=== PATIENT | female | born 2000 | race Hispanic/Latino ===

== ENCOUNTER 2020-08-05 09:17 | Observation (INO) | payer OTHER, SELFPAY ==
[2020-08-05 09:54] VITALS: BMI 41.6
[2020-08-05] MEDS ORDERED: hydrALAZINE 20 MG/ML VIAL SLOW IVP PRN (10:30)
[2020-08-05] MEDS ORDERED: Ondansetron PF 4 MG/2 ML Vial IVP PRN (10:51)
[2020-08-05 14:26] LABS: Hemoglobin 10.5 g/dL (12.0-15.5); Mean Corpuscular HGB CONC 32.9 g/dL (32.0-36.0); Mean Corpuscular Hemoglobin 29.6 pg (27.0-33.0); Mean Corpuscular Volume 89.9 fl (81.6-98.3); Mean Platelet Volume 9.7 fl (7.4-10.4); Platelet Count 249 10x3/uL (150-450); RBC Distribution Width 13.2 % (11.5-14.5); Red Blood Cell (RBC) Count 3.55 10x6/uL (3.90-5.03); White Blood Cell (WBC) Count 15.3 10x3/uL (3.5-10.5)
[2020-08-05 15:03] LABS: Hep B Surf Ag Non-Reactive S/CO (NonReactive); Syphilis Antibody Nonreactive (Nonreactive); Syphilis Antibody Index 0.03 S/CO (<1.00 Non-Reactive)
[2020-08-05 15:24] LABS: HBSAg Index 0.12 S/CO (0-0.99)
[2020-08-05] MEDS: Acetaminophen 500 MG TAB PO PRN (16:21)
[2020-08-06] MEDS: Acetaminophen 500 MG TAB PO PRN (10:49)
== END 2020-08-06 10:54 | disposition home health service (06) ==
LOC: CSHLD/OP 09:17 → CSHLD 10:51
PROVIDERS: ADMIT Obstetrics & Gynecology; ATTEND Obstetrics & Gynecology
DX: O36.8130 Decreased fetal movements, third trimester, not applicable or unspecified (principal); O9A.313 Physical abuse complicating pregnancy, third trimester; S80.812A Abrasion, left lower leg, initial encounter; S20.412A Abrasion of left back wall of thorax, initial encounter; S40.212A Abrasion of left shoulder, initial encounter; Z3A.33 33 weeks gestation of pregnancy; Y07.499 Other family member, perpetrator of maltreatment and neglect
CPT/HCPCS: 70450; 76815; 76819; 85027; 86780; 86850; 86900; 86901; 87340; 99285; G0378